=== PATIENT | female | born 1950 | race Caucasian/White ===

== ENCOUNTER 2022-12-19 13:41 | Outpatient (CLI) | payer MEDICARE, SELFPAY ==
--- NOTE | ~2022-12-19 | XR_ITS ---
EXAM: XR knee LT 3V DATE: 12/19/2022 14:01 HISTORY: M17.12 - Unilateral primary osteoarthritis, left knee . COMPARISON: 06/21/2022, images only. FINDINGS: Decreased mineralization. No acute fracture or dislocation. Old [place] fracture fragment. No lytic or blastic lesion. Loss of normal valgus alignment. Moderate medial joint space narrowing. M oderate tricompartmental osteophytosis. Moderate volume joint fluid. No erosion or periosteal change. Soft tissues within normal limits. IMPRESSION: Moderate tricompartmental left knee osteoarthritis. Moderate left knee joint effusion. Reviewed, dictated and finalized at location K. IMPRESSION: Moderate tricompartmental left knee osteoarthritis. Moderate left k nee joint effusion.
== END 2022-12-19 13:42 | disposition home or self-care (01) ==
LOC: ANHIMG 13:51
PROVIDERS: PCP Pediatrics; Visit Provider Orthopaedic Surgery
DX: M17.12 Unilateral primary osteoarthritis, left knee (principal); M25.462 Effusion, left knee
CPT/HCPCS: 73562

== ENCOUNTER 2023-06-20 08:33 | Outpatient (CLI) | payer MEDICARE, SELFPAY ==
--- NOTE | ~2023-06-20 | XR_ITS ---
Left Knee Technique: AP, lateral, and sunrise views were obtained. Clinical History: Osteoarthritis Findings: No fracture or dislocation is seen. Osseous alignment is anatomic. There is medial compartm ent narrowing with moderate medial joint line spurring. There is mild patellar spurring and lateral c ompartment spurring.. Soft tissues are unremarkable. No joint effusion is seen. Impression: Tricompartmental degenerative change, as detailed above, worst in the medial compartment. Reviewed, dictated and finalized at location M. LITY ADMINISTRATOR Impression: Tricompartmental degenerative change, as detailed above, worst in the medial co mpartment.
== END 2023-06-20 08:34 | disposition home or self-care (01) ==
LOC: ANHIMG 08:38
PROVIDERS: PCP Pediatrics; Visit Provider Orthopaedic Surgery
DX: M17.12 Unilateral primary osteoarthritis, left knee (principal)
CPT/HCPCS: 73562

== ENCOUNTER 2023-07-29 08:24 | Outpatient (CLI) | payer MEDICARE, SELFPAY ==
--- NOTE | 2023-07-29 | ECHO_ITS ---
Patient Info Name: Elly Kirkland Age: 72 years : 1950 Gender: Female Ht: 66 in Wt: 175 lbs BSA: 1.94 m2 HR: 62 bpm BP: 128 / 75 mmHg Heart Rhythm: Left Bundle Branch Block Technical Quality: Good Exam Date: 07/29/2023 8:58 AM Exam Location: Echo Lab Patient Status: Outpatient Admit Date: 07/29/2023 Staff Ordering Physician: Randall Casas MD Floor Covering Printer Assistant: Attending Provider: Randall Casas MD Referring Physician: Yessenia MONTANEZ; Exam Type: CA echo doppler color flow Study Info Indications R01.1 - Cardiac murmur, unspecified Summary 1. Left ventricular chamber dimension is normal. 2. Left ventricular systolic function is normal, estimated at 60-65%. 3. The left ventricular diastolic function is grade I diastolic dysfunction. 4. E/e' 7 is not elevated. 5. Left atrial chamber dimension is mildly enlarged. 6. There is mild aortic valve sclerosis. 7. There is trace mitral valve regurgitation. 8. There is trace tricuspid valve regurgitation. 9. No pulmonary hypertension, estimated pulmonary arterial systolic pressure is 34 mmHg. Left Ventricle E/e' 7 is not elevated. Left ventricular chamber dimension is normal. Left ventricular systolic function is normal, estimated at 60-65%. The left ventricular diastolic function is grade I diastolic dysfunction. Right Ventricle Right ventricular systolic function is normal and with normal TAPSE 2.4 cm. Right ventricular chamber dimension is normal. Left Atria Left atrial chamber dimension is mildly enlarged. Right Atria Right atrial chamber dimension is normal. Aortic Valve The aortic valve is trileaflet. There is mild aortic valve sclerosis. There is no aortic valve stenosis. There is no aortic valve regurgitation. Pulmonic Valve There is no pulmonic regurgitation. Mitral Valve There is no mitral valve stenosis. There is trace mitral valve regurgitation. Tricuspid Valve There is trace tricuspid valve regurgitation. No pulmonary hypertension, estimated pulmonary arterial systolic pressure is 34 mmHg. Pericardium/Pleural There is no pericardial effusion. Inferior Vena Cava Normal inferior vena cava with >50% collapse upon inspiration consistent with normal right atrial pressure, 5 mmHg. Aorta The aortic root size at the sinus of Valsalva is normal. Left Ventricular Outflow Tract Name Value Normal LVOT 2D LVOT Diameter 2.0 cm LVOT Doppler LVOT Peak Gradient 6 mmHg LVOT Mean Gradient 3 mmHg LVOT VTI 29 cm LVOT VTI/AV VTI Ratio 0.7 LVOT Stroke Volume 91 ml LVOT CO 5.9 l/min LVOT CI 3.0 l/min/m2 Pulmonic Valve Name Value Normal PV Doppler PV Peak Gradient 5 mmHg PV Regurgitation Doppler
--- NOTE | 2023-07-29 09:27 | ECG_ITS ---
Measurements Intervals [place] Rate: 63 P: 62 [place]: 177 QRS: -12 QRSD: 133 T: 79 QT: 446 QTc: 457 Interpretive Statements SINUS RHYTHM LEFT BUNDLE BRANCH BLOCK ABNORMAL ECG NO PREVIOUS ECG AVAILABLE FOR COMPARISON Electronically Signed On 07-29-2023 9:48:47 CDT by Todd Uriarte D.O.
== END 2023-07-29 08:25 | disposition home or self-care (01) ==
PROVIDERS: PCP Pediatrics; Visit Provider Pediatrics
DX: Z01.818 Encounter for other preprocedural examination (principal); R93.1 Abnormal findings on diagnostic imaging of heart and coronary circulation; R94.31 Abnormal electrocardiogram [ECG] [EKG]; I44.7 Left bundle-branch block, unspecified; I35.8 Other nonrheumatic aortic valve disorders; I07.1 Rheumatic tricuspid insufficiency; M19.90 Unspecified osteoarthritis, unspecified site; M25.562 Pain in left knee; E55.9 Vitamin D deficiency, unspecified; G25.2 Other specified forms of tremor; R01.1 Cardiac murmur, unspecified
CPT/HCPCS: 93005; 93306

== ENCOUNTER 2023-10-17 08:23 | Outpatient (CLI) | payer MEDICARE, SELFPAY ==
--- NOTE | ~2023-10-17 | NM_ITS ---
EXAMINATION: NM judy stress w perfusion DATE: 10/17/2023 11:05 INDICATION: Other forms of dyspnea. TECHNIQUE: Rest images were obtained following intravenous administration of 10.2 mCi Tc99m tetrofosm in (Myoview). The patient was infused intravenously with Lexiscan (regadenoson). Then, 33 mCi Tc99m t etrofosmin (Myoview) was administered intravenously, and stress images were obtained. Data was recons tructed into short axis and horizontal and vertical long axis SPECT images. Gated SPECT images were a lso obtained. COMPARISON: Myocardial perfusion imaging 01/08/2018 FINDINGS: There is no definite reversible or fixed perfusion abnormality to suggest ischemia or infar ction. There is no segmental wall motion abnormality. Left ventricular ejection fraction measures 6 7%. IMPRESSION: 1. No definite ischemia or infarct. 2. Normal left ventricular ejection fraction measuring 67%. Reviewed, dictated and finalized at location E.
--- NOTE | 2023-10-17 08:31 | EST_ITS ---
Patient Info Name: Elly Kirkland Age: 73 years : 1950 Gender: Female Ht: 65 in Wt: 170 lbs BSA: 1.90 m2 HR: 60 bpm BP: 174 / 88 mmHg Heart Rhythm: Sinus Rhythm Exam Date: 10/17/2023 9:24 AM Exam Location: Echo Lab Patient Status: Outpatient Admit Date: 10/17/2023 Staff Ordering Physician: Todd Uriarte DO Attending Provider: Todd Uriarte DO Exercise Technologist: Mary Cheng CT Exercise Physician: Todd Uriarte DO Exam Type: CA stress judy w NM Study Info Indications Z01.810 - Encounter for preprocedural cardiovascular examination R06.09 - Other forms of dyspnea A regadenoson stress test was performed. Summary 1. 1. Inconclusive lexiscan stress test for ischemic ST changes by ECG criteria due to baseline LBBB. 2. 2. Baseline hypertension. 3. 3. Nuclear scan to follow and will be reported separately. Please correlate with it. 4. 4. Patient informed of the above results. Protocol: Lexiscan Stress ECG Details Stage: REST Duration (min): 6 min : 58 sec HR (bpm): 60 SBP (mmHg): 174 DBP (mmHg): 88 Stage: REST Duration (min): 12 min : 8 sec HR (bpm): 62 SBP (mmHg): 174 DBP (mmHg): 88 Stage: STAGE 1 Duration (min): 1 min : 0 sec HR (bpm): 67 SBP (mmHg): 174 DBP (mmHg): 88 Stage: RECOVERY Duration (min): 1 min : 0 sec HR (bpm): 84 SBP (mmHg): 174 DBP (mmHg): 88 Stage: RECOVERY Duration (min): 2 min : 0 sec HR (bpm): 79 SBP (mmHg): 178 DBP (mmHg): 79 Stage: RECOVERY Duration (min): 3 min : 0 sec HR (bpm): 83 SBP (mmHg): 178 DBP (mmHg): 79 Stage: RECOVERY Duration (min): 4 min : 0 sec HR (bpm): 78 SBP (mmHg): 181 DBP (mmHg): 76 Stage: RECOVERY Duration (min): 5 min : 0 sec HR (bpm): 79 SBP (mmHg): 169 DBP (mmHg): 76 Stage: RECOVERY Duration (min): 5 min : 10 sec HR (bpm): 78 SBP (mmHg): 169 DBP (mmHg): 76 Rest HR: 62 bpm Peak HR: 84 bpm Rest Sys BP: 174 mmHg Peak Sys BP: 181 mmHg Max Pred HR: 149 bpm % Max Pred HR: 56 % Target HR: 127 bpm Max RPP: 15,204 bpm*mmHg Termination Reason: Completed protocol Cardiac Symptoms: Shortness of breath Total Time: 1 min : 0 sec Rest Roy BP: 88 mmHg Peak Roy BP: 76 mmHg Total Dose: 0.4 mg Resting ECG Sinus rhythm with LBBB. Stress ECG No ST changes. Arrhythmias Intermittent ectopic atrial rhythm. Report Signatures
== END 2023-10-17 08:24 | disposition home or self-care (01) ==
LOC: ANHCARD 08:27
PROVIDERS: PCP Pediatrics; Visit Provider Internal Medicine Cardiovascular Disease
DX: R06.09 Other forms of dyspnea (principal); Z01.810 Encounter for preprocedural cardiovascular examination
CPT/HCPCS: 78452; 93017; A9502; J2785

== ENCOUNTER 2023-10-21 07:27 | Outpatient (CLI) | payer MEDICARE, SELFPAY ==
[2023-10-21 08:07] LABS: Hemoglobin 13.5 g/dL (12.0-15.0)
[2023-10-21 08:33] LABS: Albumin Level 4.6 g/dL (3.5-5.1); Estimated Glomerular Filt Rate > 60; Glucose 134 mg/dL (65-110)
== END 2023-10-21 07:28 | disposition home or self-care (01) ==
LOC: ANHLAB 07:29
PROVIDERS: PCP Pediatrics; Visit Provider Orthopaedic Surgery
DX: M17.12 Unilateral primary osteoarthritis, left knee (principal); R06.09 Other forms of dyspnea
CPT/HCPCS: 36415; 82040; 82565; 82947; 85014; 85018

== ENCOUNTER 2023-12-03 13:56 | Outpatient (CLI) | payer MEDICARE, SELFPAY ==
[2023-12-03 15:25] LABS: Basophils Percent Auto 0.5 % (0.2-1.2); Eosinophils Absolute Auto 0.1 K/mm3 (0-0.3); Eosinophils Percent Auto 1.6 % (0-4.4); Hematocrit 42.4 % (37.0-47.0); Hemoglobin 14.3 g/dL (12.0-15.0); Immature Granulocyte Absolute 0.03 K/mm3 (0.00-0.031); Immature Granulocyte Percent A 0.4 % (0-0.5); Lymphocytes Absolute Auto 1.62 K/mm3 (0.9-3.2); Lymphocytes Percent Auto 19.1 % (18.3-44.2); Mean Corpuscular HGB Conc 33.7 g/dl (32-36); Mean Corpuscular Hemoglobin 29.1 pg (26-34); Mean Corpuscular Volume 86.2 fl (80-100); Mean Platelet Volume 9.6 fl (7.4-10.4); Monocytes Absolute Auto 0.5 K/mm3 (0.1-0.6); Monocytes Percent Auto 5.9 % (2.6-8.5); Neutrophils Absolute Auto 6.2 K/mm3 (1.3-6.7); Neutrophils Percent Auto 72.5 % (45.5-73.1); Platelet Count Result 257 k/mm3 (150-375); Red Blood Count 4.92 M/mm3 (4.2-5.4); Red Cell Distribution Width 12.6 % (11.5-14.5); White Blood Count 8.5 K/mm3 (4.5-10.0)
[2023-12-03 15:38] LABS: Albumin Level 4.8 g/dL (3.5-5.1)
[2023-12-03 15:40] LABS: Anion Gap 14 mmol/L (4-12); Blood Urea Nitrogen 23 mg/dL (7-17); Calcium 9.9 mg/dL (8.4-10.2); Carbon Dioxide 26 mmol/L (22-30); Chloride 99 mmol/L (98-107); Estimated Glomerular Filt Rate > 60; Glucose 129 mg/dL (65-110); Potassium 4.3 mmol/L (3.4-5.0); Sodium 139 mmol/L (137-145)
[2023-12-03 15:41] LABS: Urine Cotinine NEGATIVE
[2023-12-03 17:10] LABS: Hemoglobin A1C 6.3 % (<5.7)
[2023-12-03 17:11] LABS: MRSA (PCR) NOT DETECTED (NOT DETECTE)
== END 2023-12-03 13:57 | disposition home or self-care (01) ==
LOC: ANHSURGERY 13:59
PROVIDERS: Anesthesiology; PCP Pediatrics; Visit Provider Orthopaedic Surgery
DX: Z01.818 Encounter for other preprocedural examination (principal); M17.12 Unilateral primary osteoarthritis, left knee; E11.9 Type 2 diabetes mellitus without complications
CPT/HCPCS: 36415; 80048; 80307; 82040; 83036; 85025; 87641

== ENCOUNTER 2023-12-25 01:42 | Day surgery (SDC) | payer MEDICARE, SELFPAY ==
[2023-12-03 14:03] VITALS: BMI 28.3
--- NOTE | 2023-12-03 14:27 | PC.NURSE ---
Report to the Outpatient Waiting Room, entrance under the green pavilion located off [facility], at time 8:30 AM on date _12/25/23 . Planned Procedure Time: _10:30 AM . Time changes happen often and if your time is changed the preop area will call you the afternoon before. - You and your visitor will be asked to self-screen and do not enter if you have any COVID symptoms. - A mask is optional within the hospital at this time. Patients may have clear liquids (water, carbonated beverages, clear teas, apple juice) until 3 hours prior to surgery ( 7:30 AM)with a maximum of 20 ounces. - No food from midnight until time of surgery - Infants may have breast milk until 4 hours before surgery, infant formula 6 hours prior to surgery. - Children will be allowed to drink immediately following surgery. If applicable, please bring a bottle or sippy cup to assist with drinking. Juice, water, soda, and popsicles are readily available. For infants on formula, please bring formula the day of surgery. Pacifiers are allowed. Take the following medications with a SIP of water the morning of surgery: __LEVOTHYROXINE DO NOT STOP ANY OF YOUR OTHER PRESCRIPTION MEDICATIONS PRIOR TO SURGERY ?EXCEPT THE FOLLOWING Medications to discontinue per physician ____HOLD ASPIRIN AND IBUPROFEN 7 DAYS PRE OP PER DR ROGERS. LAST DOSE 12/17/23 HOLD ALL VITAMINS AND SUPPLEMENTS 3 DAYS PRE OP.LAST DOSE 12/21/23 MAY TAKE TYLENOL IF NEEDED FOR PAIN Please no make-up, nail maltese, hairspray, perfume, deodorant, or body powder the day of surgery. No jewelry (including any body piercings) or valuables the day of surgery, leave them at home. Please take a shower or bath the night before, or the morning of, surgery with an antibacterial soap. Wear comfortable, loose fitting clothing. Children are encouraged to wear pajamas. - Jewelry must be removed prior to entering the operating room. Rings and piercings that are not removed may be cut off. - The hospital will not accept responsibility for valuables. - Please leave all valuables, including medications, at home the day of surgery. If you are going home after surgery, a licensed van driver helper must drive you home. - NO public transportation without another adult if you receive anesthesia. - We recommend that an adult stay with you for 24 hours following discharge. - We also recommend that you do not drive, make important decision, drink alcoholic beverages, or take any drugs that were not prescribed by your health care provider for at least 24 hours after your discharge time. Follow any additional instructions given to you from your surgeon. If you or anyone in your household have experienced Covid symptoms in the past week, please notify your surgeon or the nurse liaison at the phone number below for possible testing. VERBAL AND WRITTEN instructions given to _PATIENT AND DAUGHTER JANN and asked if any additional questions and then verbalized understanding. Patient advised to call surgeon office or pre surgery nurse liaison [phone] if any additional questions.
[2023-12-03 14:43] VITALS: BP 187/86; PULSE 66; RESP 18; TEMP 36.6; O2SAT 100
[2023-12-25] VITALS (15 sets, daily range): BP systolic 96–199; BP diastolic 46–78; PULSE 50–96; RESP 10–20; TEMP 36.2–36.8; O2SAT 92–100
--- NOTE | ~2023-12-25 | XR_ITS ---
[id number] Ordering provider: Jarett Myers MD History: . LEFT TOTAL KNEE ARTHROPLASTY POST OP . Comparison: None. FINDINGS: BONES: No acute fracture or dislocation. JOINT SPACES: Total knee arthroplasty. SOFT TISSUES: Postoperative changes. IMPRESSION: No acute osseous abnormality. Total knee arthroplasty. Reviewed, dictated and finalized at location A.
[2023-12-25] MEDS: ACETAMINOPHEN 500 MG TABLET 1000 MG PO (09:10)
[2023-12-25] MEDS: LACTATED RINGERS 1,000 ML 30 ML IV CONT ×2 (09:23→12:35)
--- NOTE | 2023-12-25 09:25 | ECG_ITS ---
Test Date: 2023-12-25 09:40:57 Measurements Intervals [place] Rate: 60 P: 58 RI: 186 QRS: -13 QRSD: 138 T: 98 QT: 439 QTc: 439 Interpretive Statements SINUS RHYTHM LEFT BUNDLE BRANCH BLOCK [120+ ms QRS DURATION, 80+ ms Q/S IN V1/V2, 85+ ms R IN I/aVL/V5/V6] No previous ECG available for comparison Electronically Signed On 12-25-2023 09:59:38 CDT by Braydon Antunez M.D.
[2023-12-25 09:26] LABS: Glucose Point of Care 125 mg/dl (65-105)
--- NOTE | 2023-12-25 09:50 | WPDHPUPDATE1 ---
History and Physical Update Update Date/Time: 12/25/23 09:50 History and Physical has been reviewed, including an updated exam of the patient. There are NO changes in the patient's condition. Risks, benefits, and alternatives have been discussed and questions answered. Patient agrees to proceed with procedure.
[2023-12-25] MEDS: TRANEXAMIC ACID 1,000MG/ISO100 1,000 MG/100 ML BAG 200 MG IVPB (10:04)
--- NOTE | 2023-12-25 10:15 | P.PNAN_ITS ---
Anes - Eval Final PreProcedure Day of Procedure 12/25/23 10:15 Patient weight: overweight Heart: regular rate and rhythm Lungs: clear to auscultation and normal air movement Airway: Mallampati scale class 1 and other (missing teeth and small chips on edges of teeth) Neurological: alert and oriented Last oral intake: >/= 8 hours ASA classification: III Emergent: no Anesthetic plan: proceed Anesthesia type and monitoring: general LMA Results Review: All pre-operative results and documents have been reviewed as part of the pre- operative evaluation. Informed Consent: The patient's anesthetic plan and its attendant risks and benefits were discussed with the patient/family/POA. Questions were solicited and answers provided to the satisfaction of the patient/family/POA.
[2023-12-25] MEDS: ceFAZolin 2 GM/D5W 50 ML 2 GM/50 ML BAG IVPB ×2 (10:27→18:06)
[2023-12-25] MEDS: SODIUM CHLORIDE 0.9% IV 37.7 ML, MORPHINE SULFATE INJ (*CRX) 2 MG, ROPivacaine HCL 1% 2... INFILTRATE (11:33)
--- NOTE | 2023-12-25 12:29 | W.PM.PROC2 ---
Procedure Note - Detailed Date of Procedure 12/25/23 Pre-op Diagnosis primary oa left knee Post-op Diagnosis Same Procedure Performed Total knee arthroplasty, left. Surgeon Jarett Myers MD Anesthesia General and Regional (subsartorial block) Findings No significant releases. Good bone quality. Description of Procedure The patient was brought to the operating room. A general anesthetic was administered. The leg was prepped and draped in the usual sterile fashion. The limb was elevated and the tourniquet inflated to 300 mmHg during initial exposure, and cementation. A longitudinal incision was created along the medial border of the patella and patellar tendon, and a trivector approach to the knee was performed. No medial release was taken. The knee was then flexed. The osteophytes were carefully removed. The intramedullary guide was placed in the femoral canal. The distal femoral resection was then taken with the oscillating saw. The collateral ligaments were carefully protected. The tibia was carefully exposed. The jig was applied, and the proximal tibia was resected according to preoperative plan. The knee was balanced in extension. Appropriate releases were taken where needed. The anterior cruciate ligament and meniscal remnants were removed. The posterior cruciate ligament was preserved. The patella was measured. Patellar resection was carried out with the oscillating saw. The lug holes drilled. The femur was sized and rotation assessed using a combination of gap balancing, posterior referencing, and the AP axis. The 4 in 1 cutting block was used to finish the femoral cuts after equal gaps were assured. The osteophytes were carefully removed from the back of the knee. The knee was copiously irrigated with antibiotic solution periodically throughout the procedure. The meniscal remnants were removed. The spacer block was used to confirm equal flexion and extension gaps. No further releases were needed. The tibia was sized and broached. The bony surfaces were prepared for cementing with pulsatile lavage. The real tibial and femoral and patellar components were cemented into position. Excess cement was carefully removed. Patellar tracking was carefully assessed. No additional releases were required. Dilute sterile Betadine soak performed for three minutes. Copious irrigation then performed. The wound was closed with #1 Vicryl suture, #2, 2-0, and 3-0 barbed suture, followed by Steri-Strips. A sterile bulky dressing was applied. Meticulous hemostasis was maintained throughout the procedure. The bipolar cautery device was used. The pain relieving mixture was injected into the periarticular tissues during the procedure. There were no complications. The patient was extubated and brought to the recovery room in stable condition after the application of sterile dressing with Vijay bandage. Implants Deyvi Triathlon knee system, low profile cemented tibia size 4, cemented cruciate retaining femoral component size 4 ,and a 12 mm cruciate retaining polyethylene insert. 32mm asymmetric all polyethylene patella component. Estimated Blood Loss 100 Drains No Pathology None sent Complications No immediate complications Condition Stable Disposition PACU [facility] Billing Surgery - Charge Forward: Surgery Billing
[2023-12-25 12:43] LABS: Glucose Point of Care 141 mg/dl (65-105)
[2023-12-25] MEDS: fentaNYL CITRATE INJ (*CRX) 100 MCG/2 ML VIAL 25 MCG IV PUSH (13:04)
[2023-12-25] MEDS: ONDANSETRON INJ 4 MG/2 ML VIAL IV PUSH ×2 (13:06→18:04)
[2023-12-25] MEDS: diphenhydrAMINE HCl INJ 50 MG/ML VIAL 12.5 MG IV PUSH (13:28)
[2023-12-25] MEDS: HALOPERIDOL LACTATE 5 MG/ML VIAL IV PUSH (13:41)
--- NOTE | 2023-12-25 15:14 | ADMGEN ---
This patient, Elly Kirkland, was admitted to Medical Room 250-01. Patient/family oriented to hospital policies and general routines including ID bracelet, bed and alarms, visiting hours, pain management, procedures, bathroom and other care routines, personal items, smoking policy, room service/diet, and visiting hours. Information on how to activate the Rapid Response Team has been discussed. Patient/Family are encouraged to report perceived risks to care and to ask questions if they do not understand what they are told or what they should do.
[2023-12-25] MEDS: IBUPROFEN IV 800 MG/200 ML 800 MG/200 ML BAG 400 MG IVPB (15:45)
[2023-12-25] MEDS: oxyCODONE/ACETAMINOPHEN (*CRX) 5-325 MG TABLET 1 TABLET PO (15:46)
[2023-12-25] MEDS: SODIUM CHLORIDE 0.9% IV 1,000 ML 125 ML IV CONT (15:50)
[2023-12-25] MEDS: ACETAMINOPHEN 325 MG TABLET 650 MG PO ×2 (18:04→23:00)
[2023-12-25] MEDS: ENALAPRIL MALEATE 10 MG TABLET 20 MG PO (18:05)
[2023-12-25] MEDS: ASPIRIN 81 MG ENTERIC TABLET PO (21:00)
[2023-12-26 00:06] VITALS: BP 123/49; PULSE 63; RESP 20; TEMP 36.5; O2SAT 99
[2023-12-26] MEDS: ceFAZolin 2 GM/D5W 50 ML 2 GM/50 ML BAG IVPB ×2 (02:08→09:19)
[2023-12-26] MEDS: oxyCODONE/ACETAMINOPHEN (*CRX) 5-325 MG TABLET 1 TABLET PO ×3 (02:14→15:12)
[2023-12-26 03:05] VITALS: BP 124/48; PULSE 63; RESP 18; TEMP 36.5; O2SAT 98
[2023-12-26 05:12] LABS: Basophils Percent Auto 0.3 % (0.2-1.2); Eosinophils Percent Auto 0.3 % (0-4.4); Hematocrit 37.5 % (37.0-47.0); Hemoglobin 12.5 g/dL (12.0-15.0); Immature Granulocyte Absolute 0.04 K/mm3 (0.00-0.031); Immature Granulocyte Percent A 0.3 % (0-0.5); Lymphocytes Absolute Auto 0.87 K/mm3 (0.9-3.2); Lymphocytes Percent Auto 7.6 % (18.3-44.2); Mean Corpuscular HGB Conc 33.3 g/dl (32-36); Mean Platelet Volume 10.3 fl (7.4-10.4); Monocytes Absolute Auto 0.7 K/mm3 (0.1-0.6); Monocytes Percent Auto 6.1 % (2.6-8.5); Neutrophils Absolute Auto 9.8 K/mm3 (1.3-6.7); Neutrophils Percent Auto 85.4 % (45.5-73.1); Platelet Count Result 227 k/mm3 (150-375); Red Blood Count 4.31 M/mm3 (4.2-5.4); Red Cell Distribution Width 12.6 % (11.5-14.5); White Blood Count 11.4 K/mm3 (4.5-10.0)
[2023-12-26] MEDS: ACETAMINOPHEN 325 MG TABLET 650 MG PO ×2 (05:14→11:04)
[2023-12-26] MEDS: LEVOTHYROXINE SODIUM 50 MCG TABLET PO (05:14)
[2023-12-26 05:28] LABS: Anion Gap 10 mmol/L (4-12); Blood Urea Nitrogen 11 mg/dL (7-17); Calcium 8.5 mg/dL (8.4-10.2); Carbon Dioxide 26 mmol/L (22-30); Chloride 99 mmol/L (98-107); Estimated CRCL calculation 75 ml/min; Estimated Glomerular Filt Rate > 60; Glucose 154 mg/dL (65-110); Sodium 135 mmol/L (137-145)
[2023-12-26 08:06] VITALS: BP 131/51; PULSE 65; RESP 18; TEMP 37.1; O2SAT 98
[2023-12-26] MEDS: ONDANSETRON INJ 4 MG/2 ML VIAL IV PUSH (08:26)
[2023-12-26] MEDS: ASPIRIN 81 MG ENTERIC TABLET PO (09:13)
[2023-12-26] MEDS: MELOXICAM 7.5 MG TABLET PO (09:13)
[2023-12-26] MEDS: ENALAPRIL MALEATE 10 MG TABLET 20 MG PO (09:13)
[2023-12-26] MEDS: CALCIUM/VITAMIN D 500 MG/5 MCG (200 I.U.) TABLET PO (09:13)
[2023-12-26] MEDS: metFORMIN HCL 500 MG TABLET PO (09:14)
[2023-12-26] MEDS: NIACIN SA 500 MG TABLET PO (09:14)
[2023-12-26] MEDS: SENNA/DOCUSATE SODIUM TABLET 2 TAB PO (09:14)
[2023-12-26] MEDS: polyethylene glycoL 3350 17 GM POWD.PACK PO (09:14)
[2023-12-26] MEDS: predniSONE 5 MG TABLET PO (09:14)
[2023-12-26 12:06] VITALS: BP 159/58; PULSE 62; RESP 18; TEMP 37.1; O2SAT 94
--- NOTE | 2023-12-26 14:48 | P.DS_ITS ---
DS: Admitting Diagnosis Discharge Date 12/26/23 Admitting Diagnosis Degenerative arthritis knee DS: Discharge Diagnosis Discharge Diagnosis (1) Status post total knee replacement, left: Code(s): Z96.652 - Presence of left artificial knee joint Status: Acute DS: Summary Hospital Course Reason for hospitalization: Total knee arthroplasty. Hospital Course: Tolerated surgery well. Progressed appropriately with therapy. Status at Discharge Functional status at discharge: uses cane/walker Overall status at discharge: patient is progressing back to baseline Time Spent with Patient Time attestation: Total time spent providing and/or coordinating discharge services: Exam Const: General: no acute distress Resp: Effort & Inspection: normal respiratory effort Skin: Other: Wound healing well. Mepilex dressing intact. No hematoma or drainage. Neuro: Motor exam (neuro): 5/5 motor strength present throughout Sensory Exam: normal sensation Psych: Mental Status: mental status grossly normal Speech and movement: Normal speech and movement present DS: Data Data Completed and Pending Labs on day of discharge: Labs from last 24 hours 12/26/23 04:57 WBC 11.4 H RBC 4.31 Hgb 12.5 Hct 37.5 MCV 87.0 MCH 29.0 MCHC 33.3 RDW 12.6 Plt Count 227 MPV 10.3 Immature Gran % (Auto) 0.3 Neut % (Auto) 85.4 H Lymph % (Auto) 7.6 L [place] % (Auto) 6.1 Eos % (Auto) 0.3 Baso % (Auto) 0.3 Lymph # (Auto) 0.87 L [place] # (Auto) 0.7 H Eos # (Auto) 0.0 Baso # (Auto) 0.0 Abs Immat Gran (auto) 0.04 H Absolute Neuts (auto) 9.8 H Absolute Nucleated RBC 0.000 Nucleated RBC % 0.0 Sodium 135 L Potassium 4.0 Chloride 99 Carbon Dioxide 26 Anion Gap 10 BUN 11 D Creatinine 0.60 L Estim Creat Clear Calc 75 Estimated GFR > 60 Glucose 154 H Calcium 8.5 Discharge Plan Discharge Patient Disposition: Home, Self-Care Discharge Instructions: See instruction sheet. Stand Alone Forms: General Discharge Instructions Follow-up/Referrals: Jarett Myers MD [Physician] - Discharge Medications: New oxycodone-acetaminophen 5-325 mg tablet 1 - 2 tablet PO Q6H MDD 6 tablets PRN (Reason: pain) Qty: 30 0RF prednisone 5 mg tablet 5 mg PO DAILY Qty: 10 0RF Continued metformin 500 mg tablet 500 mg PO BID aspirin 81 mg tablet,delayed release (DR/EC) 81 mg PO DAILY enalapril maleate 20 mg tablet 20 mg PO BID levothyroxine 50 mcg tablet 50 mcg PO DAILY niacin 500 mg Tablet 500 mg PO DAILY calcium carbonate-vitamin D3 [Calcium 600 + D(3)] 600 mg-10 mcg (400 unit) Tablet 1 tablet PO DAILY ibuprofen 400 mg Tablet 400 mg PO TID PRN (Reason: Pain) acetaminophen 500 mg Capsule 1,000 mg PO Q6H PRN (Reason: Pain) Quality VTE Prophylaxis VTE prophylaxis: mechanical ordered ([facility] and [place])
== END 2023-12-26 15:25 | disposition home or self-care (01) ==
LOC: ANHSURGERY 08:33 → ANH2MED 14:34
PROVIDERS: PCP Pediatrics; Visit Provider Orthopaedic Surgery
PROC: (CPT 27447; principal; 2023-12-25 10:30)
DX: M17.12 Unilateral primary osteoarthritis, left knee (principal); I10 Essential (primary) hypertension; Z83.3 Family history of diabetes mellitus
CPT/HCPCS: 27447; 36415; 73560; 80048; 80307; 82040; 82948; 83036; 85025; 86850; 86900; 86901; 87641; 93005; 97110; 97161; 97165; A9270; C1713; C1776; J0171; J0690; J1170; J1200; J1596; J1630; J1741; J1885; J2270; J2405; J2704; J2795; J3010; J7030; J7120; J7512

== ENCOUNTER 2024-02-03 09:53 | Outpatient (CLI) | payer MEDICARE, SELFPAY ==
[2024-02-03 12:25] LABS: Alanine Aminotransferase 17 U/L (6-35); Albumin Level 4.9 g/dL (3.5-5.1); Alkaline Phosphatase 91 U/L (38-126); Anion Gap 12 mmol/L (4-12); Aspartate Amino Transferase 20 U/L (14-36); Bilirubin,Total 0.5 mg/dL (0.2-1.3); Blood Urea Nitrogen 18 mg/dL (7-17); Calcium 9.7 mg/dL (8.4-10.2); Carbon Dioxide 25 mmol/L (22-30); Chloride 94 mmol/L (98-107); Estimated Glomerular Filt Rate > 60; Glucose 129 mg/dL (65-110); Potassium 3.8 mmol/L (3.4-5.0); Sodium 131 mmol/L (137-145)
[2024-02-03 12:31] LABS: Immunoglobulin G 720 mg/dL (700-1600); Immunoglobulin M 265 mg/dL (40-230)
[2024-02-03 12:32] LABS: Immunoglobulin A < 40 mg/dL (70-400)
[2024-02-03 12:55] LABS: Basophils Absolute Auto 0.1 K/mm3 (0.0-0.1); Basophils Percent Auto 0.9 % (0.2-1.2); Eosinophils Absolute Auto 0.1 K/mm3 (0-0.3); Hematocrit 40.6 % (37.0-47.0); Hemoglobin 13.5 g/dL (12.0-15.0); Immature Granulocyte Absolute 0.04 K/mm3 (0.00-0.031); Immature Granulocyte Percent A 0.6 % (0-0.5); Lymphocytes Absolute Auto 1.37 K/mm3 (0.9-3.2); Lymphocytes Percent Auto 19.6 % (18.3-44.2); Mean Corpuscular HGB Conc 33.3 g/dl (32-36); Mean Corpuscular Volume 87.1 fl (80-100); Mean Platelet Volume 9.7 fl (7.4-10.4); Monocytes Absolute Auto 0.4 K/mm3 (0.1-0.6); Monocytes Percent Auto 5.9 % (2.6-8.5); Platelet Count Result 285 k/mm3 (150-375); Red Blood Count 4.66 M/mm3 (4.2-5.4); Red Cell Distribution Width 13.2 % (11.5-14.5)
[2024-02-04 11:33] LABS: Protein, Total 7.3 g/dL (6.1-8.1)
[2024-02-11 12:49] LABS: Albumin 4.7 g/dL (3.8-4.8); Alpha 1 Globulin 0.3 g/dL (0.2-0.3); Alpha 2 Globulin 0.8 g/dL (0.5-0.9); Beta 1 Globulin 0.5 g/dL (0.4-0.6); Gamma Globulin 0.8 g/dL (0.8-1.7)
[2024-02-11 17:04] LABS: Kappa\\Lambda Light Chains 1.45 (0.26-1.65); Lambda Light Chain 11.6 mg/L (5.7-26.3)
== END 2024-02-03 09:54 | disposition home or self-care (01) ==
PROVIDERS: PCP Pediatrics; Visit Provider Internal Medicine Hematology & Oncology
DX: D72.9 Disorder of white blood cells, unspecified (principal)
CPT/HCPCS: 36415; 80053; 82784; 83883; 84155; 84165; 85025

== ENCOUNTER 2024-02-10 13:18 | Outpatient (CLI) | payer MEDICARE, SELFPAY ==
--- NOTE | ~2024-02-10 | XR_ITS ---
XR knee LT 3V Ordering provider: MONSERRAT Skinner History: . 6 WEEK F/UP FORM KNEE REPLACEMENT . Comparison: None. FINDINGS: BONES: No acute fracture or dislocation. JOINT SPACES: Total knee arthroplasty. SOFT TISSUES: Normal. IMPRESSION: No acute osseous abnormality left knee. Left total knee arthroplasty. Reviewed, dictated and finalized at location A.
== END 2024-02-10 13:19 | disposition home or self-care (01) ==
LOC: ANHIMG 13:21
PROVIDERS: PCP Pediatrics; Visit Provider Physician Assistant Surgical
DX: Z47.1 Aftercare following joint replacement surgery (principal); Z96.652 Presence of left artificial knee joint
CPT/HCPCS: 73562

== ENCOUNTER 2024-08-03 09:29 | Outpatient (CLI) | payer MEDICARE, SELFPAY ==
[2024-08-03 09:45] LABS: Basophils Percent Auto 0.6 % (0.2-1.2); Eosinophils Absolute Auto 0.1 K/mm3 (0-0.3); Eosinophils Percent Auto 1.6 % (0-4.4); Hematocrit 41.6 % (37.0-47.0); Hemoglobin 14.4 g/dL (12.0-15.0); Immature Granulocyte Absolute 0.03 K/mm3 (0.00-0.031); Immature Granulocyte Percent A 0.4 % (0-0.5); Lymphocytes Percent Auto 11.6 % (18.3-44.2); Mean Corpuscular HGB Conc 34.6 g/dl (32-36); Mean Corpuscular Hemoglobin 29.2 pg (26-34); Mean Corpuscular Volume 84.4 fl (80-100); Mean Platelet Volume 8.8 fl (7.4-10.4); Monocytes Absolute Auto 0.5 K/mm3 (0.1-0.6); Monocytes Percent Auto 7.4 % (2.6-8.5); Neutrophils Absolute Auto 5.4 K/mm3 (1.3-6.7); Neutrophils Percent Auto 78.4 % (45.5-73.1); Platelet Count Result 229 k/mm3 (150-375); Red Blood Count 4.93 M/mm3 (4.2-5.4); Red Cell Distribution Width 12.5 % (11.5-14.5); White Blood Count 6.9 K/mm3 (4.5-10.0)
[2024-08-03 10:29] LABS: Alanine Aminotransferase 21 U/L (6-35); Albumin Level 4.8 g/dL (3.5-5.1); Alkaline Phosphatase 72 U/L (38-126); Anion Gap 12 mmol/L (4-12); Aspartate Amino Transferase 31 U/L (14-36); Bilirubin,Total 0.5 mg/dL (0.2-1.3); Blood Urea Nitrogen 22 mg/dL (7-17); Calcium 9.9 mg/dL (8.4-10.2); Carbon Dioxide 27 mmol/L (22-30); Chloride 100 mmol/L (98-107); Estimated Glomerular Filt Rate > 60; Glucose 149 mg/dL (65-110); Potassium 4.4 mmol/L (3.4-5.0); Sodium 139 mmol/L (137-145)
--- OUTSIDE RECORDS SUMMARY | 2024-08-03 10:37 | XMS_ITS | Clinical Summary ---
Author Organization [facility] Address [address] [place] [address] Care Team Providers Care Operation Shift Supervisor Name Role Phone Randall Casas MD Primary Care Provider + [phone] Allergies Active Allergy Reactions Criticality Noted Date Comments Ramipril Cough 02/07/2022 Medications traZODone (DESYREL) 50 MG tablet Take 50 mg by mouth nightly at bedtime. 12/10/2021 Active hydroCHLOROthia zide (MICROZIDE) 12.5 MG tablet Take 12.5 mg by mouth daily. 01/03/2022 Active levothyroxine (SYNTHROID) 50 MCG tablet Take 50 mcg by mouth daily. 12/10/2021 Active enalapril (VASOTEC) 10 MG tablet Take 10 mg by mouth 2 (two) times daily. 11/09/2021 Active niacin 250 MG tablet Take 250 mg by mouth once. Active aspirin EC (ECOTRIN) 81 MG tablet Take 81 mg by mouth daily. Active Multiple Vitamin (MULTIVITAMINS OR) Take by mouth once. Active Encounters Date Type Department Care Team Description 07/26/2024 Orders Only [facility] Admitting [address] [place] [address] Randall Casas MD 05/20/2024 9:54 AM [facility] AND SHEARER - 05/20/2024 11:59 PM [facility] Hospital Encounter [facility] [address] [place] [address] Randall Casas MD Discharge Disposition: Home or Self Care (Routine Discharge) 05/20/2024 Travel from Last 3 Months Family History Medical History Relation Comments Cancer Mother Cancer Sister Breast Cancer Neg Hx Relation Status Comments Mother Sister Social History Tobacco Use Types Packs/Day Years Used Date Smoking Tobacco: Never Passive Smoke Exposure: Never Smokeless Tobacco: Never Tobacco Cessation:Counseling Given: Not Answered Alcohol Use Standard Drinks/Week Comments Never 0 (1 standard drink = 0.6 oz pur e alcohol) Comments No Sex and Gender Information Value Date Recorded Sex Assigned at Not on file Legal Sex Female 7:10 PM CDT Gender Identity Not on file Sexual Orientation Not on file Last Filed Vital Signs Vital Sign Reading Time Taken Comments Blood Pressure 128/65 05/08/2022 9:40 AM [facility] AND SHEAR[facility] Pulse 57 05/08/2022 9:40 AM [facility] AND SHEAR[facility] Temperature 36.5 C (97.7 F) 05/08/2022 8:57 AM [facility]ARER Respiratory Rate 16 05/08/2022 9:40 AM [facility]AR[facility] Oxygen Saturation 96% 05/08/2022 9:25 AM [facility]AR[facility] Inhaled Oxygen Concentration - - Weight 78 kg (172 lb) 05/01/2022 11:16 AM [facility] AND SHEAR[facility] Height 162.6 cm (5' 4 ) 05/01/2022 11:16 AM [facility] SHEAR[facility] Body Mass Index 29.52 05/01/2022 11:16 AM [facility] SHEAR[facility] Plan of Treatment Upcoming Encounters Date Type Department Care Team (Late st Contact Info) Description 08/06/2024 8:00 AM CDT Appointment [facility] Mammography [address] [place], [place] [id number] Randall Casas MD [facility] [place] [address] Health Maintenance Due Date Last Done Comments Hepatitis C 1970 DTaP, Tdap and Td Vaccines (1 - Tdap) 09/01/1971 Zoster Vaccines (1 of 2) 2002 Annual Medicare Wellness Visit 2017 Pneumococcal Vaccine: 65+ Years (1 of 1 - PCV) 2017 COVID-19 Vaccine (4 - season) 2024 04/16/2021, 08/24/2020, 07/27/2020 Influenza Adult (#1) 2024 02/22/2021, 02/22/2020, 02/23/2019, Additional history exists Mammogram Screening 07/31/2025 08/01/2023, 2 RSV Immunization or 60+ Years (1 - 1-dose 75+ series) 09/01/2027 Colorectal Cancer Screening Colonoscopy (10 Years) 05/08/2032 05/08/2022, 05/08/2022 Dexa Scan (General) Completed 05/20/2024, 2 Meningococcal B Vaccine Aged Out No l onger eligible based on patient's age to complete this topic Meningococcal Vaccine Aged Out No kelly renae eligible based on patient's age to complete this topic RSV Immunizations Under 20 Months Aged Out No longer eligible based on patient's age to complete this topic Procedures Procedure Name Priority Date/Time Associated Diagnosis Comments BONE DENSITY/DEXA Routine 05/20/2024 10: 16 AM [facility] Asymptomatic menopausal state MG SCREENING W VICTORIA RAMIRO DIGI Routine 08/01/2023 8:00 AM CDT Visit for screening mammogram COLONOSCOPY Routine 05/08/2022 6:49 AM [facility]ARER from Last 3 Months or Most Recently Relevant to Health Maintenance Results * BONE DENSITY/DEXA (05/20/2024 10:16 AM [facility]ARER) Anatomical Region Laterality Modality Bone Bone Density 05/21/2024 6:30 AM [facility] SHE[facility]ER Impressions 05/21/2024 6:31 AM [facility] IMPRESSION: WHO Classification: Osteopenia RECOMMENDATIONS: All patients should ensure an adequate intake of dietary calcium and vitamin D. The NOF recommend adults under the age of 50 need 1000 mg of calcium and 400-800 IU of vitamin D daily. Effective therapy for the prevention and treatment of osteoporosis include bisphosphonates. Follow-up: People with diagnosed cases of osteoporosis or at high risk for fracture should have regular bone mineral density test. For patients eligible for Medicare, routine testing is allowed once every 2 years. Testing frequency can be increased to one year for patients who have rapidly progressing disease, those who are receiving or discontinuing medical therapy to restore bone mass, or have additional risk factors. Referred By: RANDALL CASAS Interpreted By: Raheel Pratt MD, 05/21/2024 6:30 AM Narrative 05/21/2024 6:31 AM [facility] [address] [place] [address] EXAMINATION: BONE DENSITY/DEXA INDICATIONS: Asymptomatic menopausal state TECHNIQUE: DEXA bone mineral density evaluation was performed in the AP projection over the lumbar spine and both hips utilizing standard imaging techniques. ASSESSMENT: The BMD measured at the AP spine L1-L4 is 0.867 g/cm? with a T-score of -1.6. The BMD measured at the left femoral neck is 0.631 g/cm? with a T-score of -2.0. The BMD measured at the left hip is 0.675 g/cm? with a T-score of -2.2. The BMD measured at the right femoral neck is 0.617 g/cm? with a T-score of - 2.1. The BMD measured at the right hip is 0.766 g/cm? with a T-score of -1.4. FRAX 10-year fracture risk: Major Osteoporotic Fracture: 19% Hip Fracture: 3.9% Procedure Note Raheel Pratt MD - 05/21/2024 [facility] [address] [place] [address] EXAMINATION: BONE DENSITY/DEXA INDICATIONS: Asymptomatic menopausal state TECHNIQUE: DEXA bone mineral density evaluation was performed in the APprojection over the lumbar spine and both hips utilizing standard imagingtechniques. ASSESSMENT: The BMD measured at the AP spine L1-L4 is 0.867 g/cm? with a T-score of-1.6. The BMD measured at the left femoral neck is 0.631 g/cm? with a T-score of-2.0. The BMD measured at the left hip is 0.675 g/cm? with a T-score of -2.2. The BMD measured at the right femoral neck is 0.617 g/cm? with a T-scoreof -2.1. The BMD measured at the right hip is 0.766 g/cm? with a T-score of -1.4. FRAX 10-year fracture risk: Major Osteoporotic Fracture: 19% Hip Fracture: 3.9% IMPRESSION: WHO Classification: Osteopenia RECOMMENDATIONS: All patients should ensure an adequate intake of dietary calcium andvitamin D. The NOF recommend adults under the age of 50 need 1000 mg ofcalcium and 400-800 IU of vitamin D daily. Effective therapy for theprevention and treatment of osteoporosis include bisphosphonates. Follow-up: People with diagnosed cases of osteoporosis or at high risk for fractureshould have regular bone mineral density test. For patients eligible forMedicare, routine testing is allowed once every 2 years. Testing frequencycan be increased to one year for patients who have rapidly progressingdisease, those who are receiving or discontinuing medical therapy torestore bone mass, or have additional risk factors. Referred By: RANDALL CASAS Interpreted By: Raheel Pratt MD, 05/21/2024 6:30 AM us Randall Casas MD DEXA Final Result * MG SCREENING W VICTORIA RAMIRO DIGI (08/01/2023 8:00 AM CDT) Anatomical Region Laterality Modality Breast Bilateral Computed Tomogra phy, Other 08/01/2023 2:20 PM CDT Narrative 08/01/2023 2:20 PM CDT EXAMINATION: Digital bilateral screening mammogram with 3-D tomosynthesis EXAM DATE/TIME: 08/01/2023 7:40 AM REASON FOR EXAM: visit for screening mammo COMPARISON: March 2022, September 2015. TECHNIQUE: Digital screening mammography of both breasts was performed in addition to 3-D Tomosynthesis technique. This study was read with the assistance of a computer-aided detection system. TISSUE DENSITY: There are scattered areas of fibroglandular density. FINDINGS: No suspicious masses, malignant appearing calcifications, skin thickening or other abnormalities are present. No significant change from the prior exam. =====IMPRESSION:===== No mammographic findings suggestive of malignancy ASSESSMENT: ACR BI-RADS 2 - BENIGN FINDING(S) Recommendation: 1: Routine Screening Bilateral COMMENTS: Ordered By: RANDALL CASAS Interpreted By: Toby Akins MD, 08/01/2023 2:20 PM us Randall Casas MD MAMMO Final Result from Last 3 Months or Most Recently Relevant to Health Maintenance Insurance [employer] Care Teams Operation Shift Supervisor Relationship Specialty Start Date End Date Randall Casas MD [address] [place] [address] PCP - General PEDIATRICS 02/25/22
--- OUTSIDE RECORDS SUMMARY | 2024-08-03 10:37 | XMS_ITS | Patient Health Record ---
Author Organization [facility] Address [address] [facility] [address] [place] [address] Care Team Providers Care Rn Complex Care Name Role Phone Yessenia MONSALVE, Randall Primary Care Provider Unavail able IAN MONSALVE, KALI Unavailable REASON FOR REFERRAL No Information MEDICATIONS Medication SIG (Take, Route, Fr equency, Duration) Notes Start Date End Date Status Enalapril Maleate 10 MG 1 tablet Orally Once a day for 30 day(s) Active Ranitidine HCl 150 MG 1 tablet at bedtim e Orally Once a day for 30 day(s) Active Niacin 250 MG 1 tablet with food O rally Once a day for 30 day(s) Active [place] 3 1000 MG 1 capsule Orally Onc e a day for 30 day(s) Active Red Yeast Rice 600 MG as directed Orally Active Aspirin 325 MG 1 tablet Orally Once a day for 30 day(s) Active Centrum Women - as directed Orally Active SOCIAL HISTORY Tobacco Use: Social History Observation Description Date Details (start date - stop date) Never Smoker NA - NA Sex Assigned At : Social History Observation Description Sex Assigned At Unknown Tobacco Use/Smoking Question Answer Notes Are you a nonsmoker PLAN OF TREATMENT Pending Test Test Name Order Date Esophagogastroduodenoscopy (EGD) 018 Insurance Providers Payer Name Payer Address Payer Phone Subscriber Number Group Number Insured Name Patient Relationship to Insured Coverage Start Date Coverage End Date [employer] Medicare [address] [place], [place] [id number] Elly Kirkland Self - patient is the insured MEDICAL (GENERAL) HISTORY Medical History History ICD Code Basal cell carcinoma Hypercholesterolemia Hypertension Hemorrhodis Hiatal hernia Surgical History Surgery Date(Month/Year) Hysterectomy Cholecystectomy Capral tunnel surgery x 2 Excision of basal cell carcinoma
--- OUTSIDE RECORDS SUMMARY | 2024-08-03 10:37 | XMS_ITS | Clinical Summary ---
Author Organization [facility] Address [address] [place] [address] Care Team Providers Care Wire Dropper Name Role Phone Christian Casas MD Primary Care Provider [phone] Allergies Active Allergy Reactions Criticality Noted Date Comments Ramipril Cough Low 02/07/2022 Medications aspirin (TODD) 325 mg tablet Take 325 mg by mouth daily. Active enalapril (VASOTEC) 20 mg tablet Take 20 mg by mouth 2 times daily. Active levothyroxine 50 mcg tablet Take 50 mcg by mouth daily. Active metFORMIN (GLUCOPHAGE) 500 mg tablet Take 1 Tablet by mouth 2 times daily. 01/02/2024 Active niacin (NIACOR) 250 mg tablet Take 250 mg by mouth daily. Active calcium as carbonate (BK-MINT) 650 mg (260 mg elemental) Tablet, Chewable Take by mouth. Active CALCIUM CARBONATE-VITAMI N D3 ORAL Take by mouth. Active Active Problems No known active problems Encounters Date Type Department Care Team Description 07/28/2024 External Device Data [facility] ABSTRACTION Provider, Abstract 07/17/2024 External Device Data [facility] ABSTRACTION Provider, Abstract 07/16/2024 External Device Data [facility] ABSTRACTION Provider, Abstract 07/14/2024 Abstract [facility] [address] [place] [address] Hitesh Schulte MD 07/13/2024 External Device Data [facility] ABSTRACTION Provider, Abstract 06/29/2024 External Device Data [facility] ABSTRACTION Provider, Abstract 06/14/2024 Telephone [facility] [address] [place] [address] Hitesh Schulte MD lab work for appointment 06/02/2024 External Device Data STL ABSTRACTION Provider, Abstract 06/01/2024 External Device Data [facility] ABSTRACTION Provider, Abstract 05/26/2024 External Device Data [facility] ABSTRACTION Provider, Abstract from Last 3 Months Family History Medical History Relation Name Comments Diabetes Brother Heart Disease Brother Heart Disease Child Heart Disease Father Cancer Mother female Colon Cancer Sister 1 Colon Cancer Sister 2 Relation Name Status Comments Brother Alive Child Alive Father Mother Sister 1 Sister 2 Social History Tobacco Use Types Packs/Day Years Used Date Smoking Tobacco: Never Smokeless Tobacco: Never Alcohol Use Standard Drinks/Week Comments Never 0 (1 standard drink = 0.6 oz pur e alcohol) Comments Unknown Sex and Gender Information Value Date Recorded Sex Assigned at Not on file Legal Sex Female 8:35 AM CDT Gender Identity Not on file Sexual Orientation Not on file Last Filed Vital Signs Vital Sign Reading Time Taken Comments Blood Pressure 192/98 02/03/2024 9:08 AM CDT Pulse 93 02/03/2024 8:55 AM CDT Temperature 36.7 C (98 F) 02/03/2024 8:55 AM CDT Respiratory Rate 15 02/03/2024 8:55 AM CDT Oxygen Saturation 90% 02/03/2024 8:55 AM CDT Inhaled Oxygen Concentration - - Weight 75.8 kg (167 lb) 02/03/2024 8:55 AM CDT Height 165.1 cm (5' 5 ) 02/03/2024 8:55 AM CDT Body Mass Index 27.79 02/03/2024 8:55 AM CDT Plan of Treatment Upcoming Encounters Date Type Department Care Team (Late st Contact Info) Description 08/19/2024 11:30 AM CDT Office Visit [facility] - [address] [facility] [address] [place] [address] Hitesh Schulte MD [address] [facility] [address] [place] [address] Health Maintenance Due Date Last Done Comments DTAP/TDAP/TD VACCINES (1 - Tdap) 09/01/1971 FIT-DNA Q 3 years 1997 FIT/FOBT Q 1 year 1997 Flex Sig/CT Colonography Q 5 years 1997 PNEUMOCOCCAL VACCINE 50+ YEA RS (1 of 1 - PCV) 2002 ZOSTER VACCINE (1 of 2) 2002 INFLUENZA VACCINE (#1) 2023 BREAST CANCER SCREENING 07/31/2024 08/01/2023, 03/28 RSV VACCINE (60+ or ) (1 - 1-dose 75+ series) 09/01/2027 COLORECTAL SCREENING 05/08/2032 05/08/2022 Colorectal Cancer Screening 05/08/2032 OSTEOPOROSIS SCREENING Completed 02/25/2022, 2021 Insurance [employer] PPO [facility] Care Teams Wire Dropper Relationship Specialty Start Date End Date Christian Casas MD [address] [place] [phone] PCP - General Family Practice 02/19/24
[2024-08-03 14:58] LABS: Immunoglobulin G 733 mg/dL (700-1600); Immunoglobulin M 216 mg/dL (40-230)
[2024-08-03 15:09] LABS: Immunoglobulin A < 40 mg/dL (70-400)
[2024-08-04 13:24] LABS: Kappa\\Lambda Light Chains 1.44 (0.26-1.65); Lambda Light Chain 13.5 mg/L (5.7-26.3)
[2024-08-05 21:43] LABS: Albumin 4.7 g/dL (3.8-4.8); Alpha 1 Globulin 0.3 g/dL (0.2-0.3); Alpha 2 Globulin 0.7 g/dL (0.5-0.9); Beta 1 Globulin 0.4 g/dL (0.4-0.6); Gamma Globulin 0.7 g/dL (0.8-1.7)
== END 2024-08-03 09:30 | disposition home or self-care (01) ==
PROVIDERS: PCP Pediatrics; Visit Provider Internal Medicine Hematology & Oncology
DX: D72.9 Disorder of white blood cells, unspecified (principal)
CPT/HCPCS: 36415; 80053; 82784; 83883; 84155; 84165; 85025